=== PATIENT | female | born 1990 | race Caucasian/White ===

== ENCOUNTER 2022-12-25 11:11 | Outpatient (OUT) | payer OTHER, SELFPAY ==
--- NOTE | 2022-12-25 | XR_ITS ---
The [address] [address] Patient Name: WILTON GARCIA MRN: [id number] date: 1990 Sex: F Assigned Patient Location: [facility] Current Patient Location: [facility] Accession/Order Number: [id number] Exam Date: 12/25/2022 11:23 Report Date: 12/25/2022 13:35 At the request of: NASREEN HWANG Procedure: XR foot LEILANI min 3V EXAMINATION: XR foot LEILANI min 3V HISTORY: BILATERAL FOOT PAIN , chronic COMPARISON: No relevant comparison available. FINDINGS: RIGHT FINDINGS: BONES: Moderate bunion formation. No fracture, dislocation, or bone lesion. No significant degenerative joint disease. SOFT TISSUES: No visible soft tissue swelling. OTHER: Negative. LEFT FINDINGS: BONES: Moderate bunion formation. No fracture, dislocation, or bone lesion. No significant degenerative joint disease. SOFT TISSUES: No visible soft tissue swelling. OTHER: Negative. XR/XR foot LEILANI min 3V IMPRESSION: RIGHT CONCLUSION: Bunion formation. No acute abnormality or significant degenerative joint disease. LEFT CONCLUSION: Bunion formation. No acute abnormality or significant degenerative joint disease. Electronically authenticated by: TAMIKA OVALLE Date: 12/25/2022 13:35
== END 2022-12-25 11:12 | disposition home or self-care (01) ==
PROVIDERS: PCP Family Medicine; Visit Provider Podiatrist Foot & Ankle Surgery
DX: M79.671 Pain in right foot (principal); M79.672 Pain in left foot
CPT/HCPCS: 73630